=== PATIENT | female | born 1975 | race Caucasian/White ===

== ENCOUNTER 2019-06-09 23:32 | Emergency (ER) | payer BC ==
[~2019-06-09] VITALS: Ht 175.3 cm; Wt 100.2 kg
[2019-06-09 23:36] VITALS: BP 147/104
[2019-06-10] MEDS ORDERED: PRED50TA PO (00:30)
--- NOTE | 2019-06-10 00:30 | PHYS DOC ---
Past History Past Medical History: Depression, Hypertension, Pancreatitis Past Surgical History: Appendectomy, Cholecystectomy Additional Past Surgical Histo: TOTAL HYSTERECTOMY, TOTAL RIGHT KNEE, Alcohol Use: None Drug Use: None Adult General Chief Complaint Chief Complaint: SHOULDER INJURY HPI HPI 44-year-old female presents with left shoulder pain. The patient has had rotator cuff tears in the past. She has done rehabilitation for this. She presents today because she is having increased pain in her left shoulder. She was moving some furniture a couple days ago and the pain has continued to increase instead of improve. She has had some pain shooting down her arm. She denies numbness or tingling. The patient is on chronic pain medication. She takes tramadol several times a day at baseline. She's been on narcotic pain medication for several years. She spoke with her orthopedic physician prior to coming to the ED and they recommended that she come in due to her discomfort. She denies fever or chills. Review of Systems Review of Systems Constitutional: Denies fever or chills [] Eyes: Denies change in visual acuity, redness, or eye pain [] HENT: Denies nasal congestion or sore throat [] Respiratory: Denies cough or shortness of breath [] Cardiovascular: No additional information not addressed in HPI [] GI: Denies abdominal pain, nausea, vomiting, bloody stools or diarrhea [] : Denies dysuria or hematuria [] Musculoskeletal: Left shoulder pain[] Integument: Denies rash or skin lesions [] Neurologic: Denies headache, focal weakness or sensory changes [] Endocrine: Denies polyuria or polydipsia [] All other systems were reviewed and found to be within normal limits, except as documented in this note. Current Medications Current Medications Current Medications Medications (Trade) Dose Ordered Sig/[facility] Start Time Stop Time Status Last Admin Dose Admin Acetaminophen/ Hydrocodone Bitart (Lortab 5/325) 2 tab 1X ONCE 06/10/19 00:30 06/10/19 00:31 UNV Methylprednisolone Sodium Succinate (SOLU-Medrol 125MG VIAL) 125 mg 1X ONCE 06/10/19 00:30 06/10/19 00:31 UNV Allergies Allergies Allergies Coded Allergies Type Severity Reaction Last Updated Verified morphine Allergy Unknown 06/09/19 Yes naproxen Allergy Unknown 06/09/19 Yes prochlorperazine Allergy Unknown 06/09/19 Yes Physical Exam Physical Exam Constitutional: Well developed, well nourished, no acute distress, non-toxic appearance. [] HENT: Normocephalic, atraumatic, bilateral external ears normal, oropharynx moist, no oral exudates, nose normal. [] Eyes: PERRLA, EOMI, conjunctiva normal, no discharge. [] Neck: Normal range of motion, no tenderness, supple, no stridor. [] Cardiovascular:Heart rate regular rhythm, no murmur [] Lungs & Thorax: Bilateral breath sounds clear to auscultation [] Abdomen: Bowel sounds normal, soft, no tenderness, no masses, no pulsatile masses. [] Skin: Warm, dry, no erythema, no rash. [] Back: No tenderness, no CVA tenderness. [] Extremities: Tenderness over the left supraspinatus, abduction and flexion only to 90 due to pain.[] Neurologic: Alert and oriented X 3, normal motor function, normal sensory function, no focal deficits noted. [] Psychologic: Affect normal, judgement normal, mood normal. [] Current Patient Data Vital Signs Vital Signs Date Time Temp Pulse Resp B/P (MAP) Pulse Ox O2 Delivery O2 Flow Rate FiO2 06/09/19 23:36 98.8 86 18 98 Room Air EKG EKG [] Radiology/Procedures Radiology/Procedures [] Course & Med Decision Making Course & Med Decision Making Pertinent Labs and Imaging studies reviewed. (See chart for details) The patient has been on narcotics for some time. Review of the drug database shows 144 prescriptions in the last 2 years. I told the patient that the most effective thing I can do for her was give her steroids and a single dose of pain medication here so she can sleep. She was content with this. She did not ask for prescription for home. Based on her history and the availability of a chronic pain management physician, I was not going to give her a prescription for home anyway. I will try Solu-Medrol in the ED followed by 4 more days of prednisone 50 mg. She will follow up with her orthopedic doctor. She is stable for discharge at this time. [] Dragon Disclaimer Dragon Disclaimer This electronic medical record was generated, in whole or in part, using a voice recognition dictation system. Departure Departure: Impression: Primary Impression: Left shoulder pain Disposition: HOME, SELF-CARE Condition: STABLE Referrals: JEISON DELGADO (PCP) Patient Instructions: Shoulder Pain, [id number] Scripts Prednisone (PREDNISONE) 50 Mg Tablet 1 TAB PO DAILY for shoulder pain for 4 Days, #4 TAB Prov: AVINASH MCKENNA DO 06/10/19 Problem Qualifiers Primary Impression: Left shoulder pain Chronicity: acute Qualified Codes: M25.512 - Pain in left shoulder AVINASH MCKENNA DO Jun 10, 2019 00:30
[2019-06-10] MEDS ORDERED: methylPREDNISolone SOD SUCC PF 125 MG/2 ML VIAL. IM ONE (01:00)
[2019-06-10] MEDS ORDERED: HYDROcodone/APAP 5/325MG 1 TAB TABLET PO ONE (01:00)
--- NOTE | 2019-06-10 03:42 | RAD ---
EXAM: LEFT SHOULDER 3 VIEWS. HISTORY: Rotator cuff tear, lifting injury. COMPARISON: None. FINDINGS: No fractures are identified. Glenohumeral joint spaces and alignment are maintained. Acromioclavicular osteoarthritis is minimal for patient age. There is mild lateral acromial downsloping.. IMPRESSION: 1. Mild acromioclavicular osteoarthritis. Mild lateral acromial downsloping. Correlate for impingement. Electronically signed by: Kelly Austin MD (06/10/2019 3:39 AM) [email or web address]
== END 2019-06-10 00:48 | disposition home or self-care (01) ==
LOC: ER 23:32
DX: M25.512 Pain in left shoulder (principal); I10 Essential (primary) hypertension; Z88.5 Allergy status to narcotic agent; Z88.8 Allergy status to other drugs, medicaments and biological substances
CPT/HCPCS: 73030; 96372; 99284; J2930